=== PATIENT | female | born 1960 | race Caucasian/White ===

== ENCOUNTER → 2016-09-24 | Outpatient (CLI) | payer BC ==
--- NOTE | 2016-09-24 14:52 | NM ---
BONE SCAN CLINICAL INDICATION: Left sandhu splint PROCEDURE: Approximately 2-4 hours following intravenous administration of 20.4 mCi of [id number], whole body delayed planar images were obtained from the anterior and posterior projections. COMPARISON: None FINDINGS: Focal uptake within the left tibia. There is normal by distribution of the radiotracer within the genitourinary system and soft tissues. IMPRESSION: 1. Focal uptake in the left tibia consistent with stress reaction. Reported By:
== END ==
LOC: RAD 09:06
PROVIDERS: ATTEND Specialist
DX: S86.892D Other injury of other muscle(s) and tendon(s) at lower leg level, left leg, subsequent encounter (principal); X58.XXXD Exposure to other specified factors, subsequent encounter
CPT/HCPCS: 78306